=== PATIENT | female | born 1995 | race African-American/Black ===

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

== ENCOUNTER 2017-02-27 12:03 | Emergency (ER) | payer SELFPAY | END 2017-02-27 12:36 | disposition home or self-care (01) | LOC: BURERS 12:03 | DX: J06.9 Acute upper respiratory infection, unspecified (principal) | CPT/HCPCS: 99283 ==

== ENCOUNTER 2017-06-19 14:50 | Emergency (ER) | payer MEDICAID, SELFPAY ==
[2017-06-19 15:40] LABS: #Eosinphils 0.2 thou/uL (0.0-0.7); #Lymphocytes 1.6 thou/uL (1.20-3.40); #Monocytes 0.4 thou/uL (0.11-0.59); #Neutrophils 3.2 thou/uL (1.40-6.50); %Basophils 0.8 % (0.0-1.0); %Eosinophils 3.2 % (0.0-10.0); %Lymphocytes 30.5 % (28.0-48.0); %Monocytes 6.8 % (0.0-4.0); %Neutrophils 58.7 % (31.0-61.0); Elliptocytes SLIGHT = 2-5 cells (100X) (0-1/hpf); Hemoglobin 11.3 g/dL (12.0-16.0); Hypochromia SLIGHT = 6-15 cells (100X) (0-5/hpf); MDiff Complete? YES; Mean Corpuscular HGB CONC 31.6 g/dL (32.0-36.0); Mean Corpuscular Hemoglobin 23.9 pg (25.0-35.0); Mean Corpuscular Volume 75.8 fl (77.0-87.0); Mean Platelet Volume 6.6 fL (7.4-10.4); Microcytosis SLIGHT = 6-15 cells (100X) (0-5/hpf); Platelet Count 277 thou/uL (130-400); Red Blood Cell (RBC) Count 4.72 mill/uL (4.00-5.20); White Blood Cell (WBC) Count 5.4 thou/uL (4.8-10.8)
[2017-06-19 15:43] LABS: BHCG - Serum Negative (NEGATIVE); Pregs Control Background? CLEAR/WHITE (CLR/WHITE); Pregs Control Bar Appear? YES (CONTROL BAR)
== END 2017-06-19 16:33 | disposition home or self-care (01) ==
LOC: BURERS 14:50
DX: N93.8 Other specified abnormal uterine and vaginal bleeding (principal); I10 Essential (primary) hypertension; D64.9 Anemia, unspecified
CPT/HCPCS: 84703; 85025; 99284

== ENCOUNTER 2017-07-31 06:45 | Emergency (ER) | payer SELFPAY ==
[2017-07-31 07:14] LABS: Bilirubin Small (Negative); Blood, Urine Trace (Negative); Clarity Slightly Cloudy (Clear); Glucose, Urine (Dipstick) Negative (Negative); Leukocyte Negative (Negative); Nitrite Negative (Negative); Protein, Urine (Dipstick) 100 mg/dL (Neg-Trace); pH, Urine 6.5 (5.0-9.0)
[2017-07-31] MEDS ORDERED: Ondansetron ODT 4 MG TAB ONE (07:14)
[2017-07-31 07:16] LABS: Pregnancy Test - Urine (BHCG) Negative (Negative); Pregu Control Background? CLEAR/WHITE (CLR/WHITE); Pregu Control Bar Appear? YES (CONTROL BAR); Specific Gravity 1.035 (1.002-1.036)
[2017-07-31 07:21] LABS: RBC/HPF 0-3 HPF (0-3)
[2017-07-31 07:22] LABS: Bacteria/HPF 2+ HPF (None Seen); Hyaline Casts/LPF 0-3 HYALINE CAST LPF (0-3 Hyaline)
[2017-07-31 07:26] LABS: Other Microscopic Description LARGE MUCOUS STRANDS; Renal Epithelial 0-3 HPF (0-3)
[2017-07-31 08:20] LABS: Specific Gravity, Urine 1.035 (1.005-1.030)
== END 2017-07-31 08:00 | disposition home or self-care (01) ==
LOC: BURERS 06:45
DX: A08.4 Viral intestinal infection, unspecified (principal); I10 Essential (primary) hypertension; D64.9 Anemia, unspecified
CPT/HCPCS: 81003; 81015; 81025; 87086; 99284; Q0162

== ENCOUNTER 2017-11-22 17:01 | Emergency (ER) | payer SELFPAY ==
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
== END 2017-11-22 17:43 | disposition home or self-care (01) ==
LOC: BURERS 17:01
DX: M79.671 Pain in right foot (principal); D50.0 Iron deficiency anemia secondary to blood loss (chronic)

== ENCOUNTER 2018-01-30 14:05 | Emergency (ER) | payer OTHER, SELFPAY | END 2018-01-30 14:44 | disposition home or self-care (01) | LOC: BURERS 14:05 | DX: N89.8 Other specified noninflammatory disorders of vagina (principal); T49.95XA Adverse effect of unspecified topical agent, initial encounter; D50.9 Iron deficiency anemia, unspecified | CPT/HCPCS: 99282 ==

== ENCOUNTER 2018-02-07 23:04 | Emergency (ER) | payer SELFPAY ==
[2018-02-07] MEDS ORDERED: Ondansetron ODT 4 MG TAB ONE (23:15)
== END 2018-02-07 23:36 | disposition home or self-care (01) ==
LOC: BURERS 23:04
DX: A08.4 Viral intestinal infection, unspecified (principal); D50.0 Iron deficiency anemia secondary to blood loss (chronic)
CPT/HCPCS: 99283; Q0162

== ENCOUNTER 2018-04-04 12:12 | Emergency (ER) | payer SELFPAY ==
[2018-04-04 12:43] LABS: Pregnancy Test - Urine (BHCG) Negative (Negative)
[2018-04-04 12:44] LABS: Clarity Clear (Clear); Pregu Control Background? CLEAR/WHITE (CLR/WHITE); Pregu Control Bar Appear? YES (CONTROL BAR)
[2018-04-04 12:45] LABS: Bacteria/HPF Rare-Few HPF (None Seen); Bilirubin Negative (Negative); Blood, Urine Trace (Negative); Glucose, Urine (Dipstick) Negative (Negative); Leukocyte Trace (Negative); Nitrite Negative (Negative); Protein, Urine (Dipstick) Negative (Neg-Trace); RBC/HPF 0-3 HPF (0-3); Squamous Epithelial 0-3 HPF (0-3); WBC/HPF 0-3 HPF (0-3); pH, Urine 8.5 (5.0-9.0)
[2018-04-04] MEDS ORDERED: Azithromycin 250 MG TAB ONE (13:08)
[2018-04-04] MEDS ORDERED: cefTRIAXone\\ROCEPHIN 500 MG VIAL ONE (13:08)
[2018-04-04] MEDS ORDERED: Lidocaine 1% PF 5 ML VIAL ONE (13:09)
[2018-04-06 03:06] LABS: Chlamydia by PCR Not Detected (NotDetected); GC by PCR Not Detected (NotDetected)
== END 2018-04-04 13:30 | disposition home or self-care (01) ==
LOC: BURERS 12:12
DX: N72 Inflammatory disease of cervix uteri (principal); D50.9 Iron deficiency anemia, unspecified
CPT/HCPCS: 81003; 81015; 81025; 87480; 87491; 87510; 87591; 87660; 96372; J0696; J2001

== ENCOUNTER 2018-08-08 20:32 | Emergency (ER) | payer SELFPAY ==
[2018-08-08 21:26] LABS: Pregnancy Test - Urine (BHCG) Negative (Negative); Pregu Control Background? CLEAR/WHITE (CLR/WHITE); Pregu Control Bar Appear? YES (CONTROL BAR); Specific Gravity 1.023 (1.002-1.036)
[2018-08-08 21:27] LABS: Clarity Clear (Clear); Specific Gravity, Urine 1.015 (1.005-1.030); pH, Urine Greater than 9.0 (5.0-9.0)
[2018-08-08 21:28] LABS: Bilirubin Negative (Negative); Blood, Urine Negative (Negative); Glucose, Urine (Dipstick) Negative (Negative); Leukocyte Negative (Negative); Nitrite Negative (Negative); Protein, Urine (Dipstick) Negative (Neg-Trace)
[2018-08-08] MEDS ORDERED: Ibuprofen 800 MG TAB ONE (21:41)
== END 2018-08-08 21:54 | disposition home or self-care (01) ==
LOC: BURERS 20:32
DX: R10.2 Pelvic and perineal pain (principal); D50.9 Iron deficiency anemia, unspecified
CPT/HCPCS: 81003; 81025; 99284

== ENCOUNTER 2019-09-09 12:20 | Emergency (ER) | payer MEDICAID, SELFPAY ==
[2019-09-09] MEDS ORDERED: Ondansetron PF 4 MG/2 ML Vial ONE (12:43)
== END 2019-09-09 13:35 | disposition home or self-care (01) ==
LOC: BURERS 12:20
DX: O21.9 Vomiting of pregnancy, unspecified (principal); Z3A.10 10 weeks gestation of pregnancy
CPT/HCPCS: 96361; 96374; J2405